=== PATIENT | male | born 1950 | race Caucasian/White ===

== ENCOUNTER 2016-09-24 14:12 | Emergency (ER) | payer MEDICARE ==
[2016-09-24] MEDS ORDERED: ALBUTEROL/IPRATROPIUM 2.5/0.5 MG 3 ML/EACH DOSE ONE (14:25)
[2016-09-24] MEDS ORDERED: ALBUTEROL SULFATE 5MG/ML INHALANT 20 ML BOT ONE (14:33)
[2016-09-24 14:47] LABS: ABSOLUTE NEUTROPHIL COUNT 10.2 K/mm3 (1.8-7.7); BASO % 0.2 % (0.2-1.0); EOS % 0.1 % (0.9-2.9); HEMATOCRIT 45.7 % (32.0-52.0); HEMOGLOBIN 13.8 gm/l (14.0-18.0); IMM NEUT # 0.1 K/mm3 (0-0.2); IMM NEUT% 0.7 % (0-1); LYMPH # 0.8 (1.0-4.8); LYMPH % 6.2 % (15-45); MEAN CELL VOLUME 105.5 fl (80.0-94.0); MEAN CORPUSCULAR HEMOGLOBIN 31.9 pg (27.0-31.0); MEAN CORPUSCULAR HGB CONC 30.2 g/dl (33.0-37.0); MONO % 8.2 % (4-12); NEUT % 84.6 % (43-75); PLATELET COUNT 271 K/mm3 (130-400); RED CELL DISTRIBUTION WIDTH 13.1 % (11.5-14.5)
[2016-09-24 14:53] LABS: VENOUS BLOOD GAS BASE EXCESS 4.4 mmol/L (-2.0-2.0); VENOUS BLOOD GAS HCO3 34.1 mmol/L (22.0-27.0)
[2016-09-24 15:10] LABS: ALBUMIN 3.7 gm/dL (3.5-5.7); CALCIUM 9.1 mg/dL (8.6-10.3)
[2016-09-24] MEDS ORDERED: NITROGLYCERIN OINT 1 G (DOSE) ONE (15:23)
--- NOTE | 2016-09-24 15:30 | RAD ---
Exam: Portable chest COMPARISON: 02/21/[address] 03/12/2016 INDICATION: Decreased oxygen saturation. FINDINGS: A semierect AP portable view of the chest demonstrates low lung volumes. Cardiac silhouette is mildly prominent but stable. Prominent epicardial fat pads are again noted. There is stable ectasia of the descending thoracic aorta. There is no focal airspace disease or pleural effusion. Several old rib fractures are again noted on the left. IMPRESSION: No acute pulmonary process.
[2016-09-24] MEDS ORDERED: METHYLPRED SOD SUCCINATE 125 MG VIAL ONE (17:29)
[2016-09-24] MEDS ORDERED: KETAMINE HCL 50 MG/1 ML 10ML VIAL ONE (17:38)
== END 2016-09-24 17:48 | disposition short-term general hospital (02) ==
LOC: ED 14:12
DX: J44.1 Chronic obstructive pulmonary disease with (acute) exacerbation (principal); J96.91 Respiratory failure, unspecified with hypoxia; I10 Essential (primary) hypertension
CPT/HCPCS: 83880; 82803; 85025; 80053; 84484; 71010; 94660; 99284; 96374; 93005; 99291; A9270; J2930